=== PATIENT | female | born 1970 | race Caucasian/White ===

== ENCOUNTER 2018-11-13 13:21 | Emergency (ER) | payer SELFPAY ==
[2018-11-13] MEDS ORDERED: TRAMADOL HCL 50 MG TAB ONE (15:44)
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
[2018-11-13] MEDS ORDERED: FENTANYL CITR 100 MCG/2 ML ONE (16:18)
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
[2018-11-13] MEDS ORDERED: KETOROLAC 30 MG/ML INJ ONE (16:55)
== END 2018-11-13 16:56 | disposition home or self-care (01) ==
LOC: ER 13:21
DX: M54.5 Low back pain (principal); V43.52XA Car driver injured in collision with other type car in traffic accident, initial encounter; Z88.5 Allergy status to narcotic agent; E11.9 Type 2 diabetes mellitus without complications
CPT/HCPCS: 72131; 96374; 96375; 99284; J3010

== ENCOUNTER 2020-08-22 15:02 | Emergency (ER) | payer OTHER, SELFPAY ==
--- NOTE | 2020-08-22 16:11 | RAD REPORT ---
EXAM DESCRIPTION: CTAbdomen Pelvis W Contrast - 08/22/2020 4:01 pm CLINICAL HISTORY: Abdominal pain. ABD PAIN COMPARISON: No comparisons TECHNIQUE: Biphasic CT imaging of the abdomen and pelvis was performed with 100 ml non-ionic IV cont rast. All CT scans are performed using dose optimization technique as appropriate and may include automated exposure control or mA/KV adjustment according to patient size. FINDINGS: The lung bases are clear.Postsurgical changes about the stomach. The liver, spleen, pancreas, adrenal glands and kidneys are within normal limits. No bowel obstruction, free air, free fluid or abscess. Moderate fecal retention throughout the colon. The appendix is normal. No evidence of significant lymphadenopathy. No suspicious bony findings. IMPRESSION: No acute intra-abdominal or pelvic finding.
[2020-08-22 16:58] LABS: Absolute Lymphocytes (CBC) 2.8 K/uL (0.7-4.9); Basophils % 1.2 % (0-1.3); Hematocrit 41.2 % (36.0-45.0); Lymphocytes % 40.9 % (15.3-44.8); MPV 8.1 fL (7.6-11.3); RBC Red Blood Cell Count 4.86 M/uL (3.86-4.86)
[2020-08-22 17:16] LABS: ALT/SGPT 12 U/L (12-78); AST/SGOT 12 U/L (15-37); Albumin 3.5 g/dL (3.4-5.0); Alkaline Phosphatase 50 U/L (45-117); BUN Blood Urea Nitrogen 15 mg/dL (7-18); Bicarbonate 29 mmol/L (21-32); Bilirubin Direct < 0.1 mg/dL (0-0.2); Bilirubin Total 0.3 mg/dL (0.2-1.0); Glucose Level 76 mg/dL (74-106); Lipase 174 U/L (73-393); Potassium 3.9 mmol/L (3.5-5.1); Protein, Total 6.9 g/dL (6.4-8.2); Sodium Level 140 mmol/L (136-145)
--- NOTE | 2020-08-22 17:30 | EDPHYS ---
Physician Documentation [facility] Name: Shante Tapia Age: 50 yrs Sex: Female : 1970 Arrival Date: 08/22/2020 Time: 15:05 Bed 18 Private MD: ED Physician Jamin Bhagat HPI: 08/22 16:03 This 50 yrs old Female presents to ER via Ambulatory with complaints of ps1 Abdominal Pain - sent by dr r/o appendicitis. 16:03 patient states that she had 4 days of RLQ abdominal pain. Possible fever. Ongoing for 4 ps1 days. Went to PCP today for scheduled appointment. Sent for ED evaluation to r/o appendicitis. Hx of gastric sleeve and abdominoplasty. No NVD. . 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 - Social history:: Smoking status: Patient reports the use of cigarette tobacco products, smokes one-half pack cigarettes per day. ROS: 16:03 Constitutional: Negative for fever, chills, and weight loss, Eyes: Negative for injury, ps1 pain, redness, and discharge, Cardiovascular: Negative for chest pain, palpitations, and edema, Respiratory: Negative for shortness of breath, cough, wheezing, and pleuritic chest pain, : Negative for injury, bleeding, discharge, and swelling, MS/Extremity: Negative for injury and deformity, Skin: Negative for injury, rash, and discoloration, Neuro: Negative for headache, weakness, numbness, tingling, and seizure. 16:03 Abdomen/GI: Positive for abdominal pain. Exam: 16:03 Constitutional: This is a well developed, well nourished patient who is awake, alert, ps1 and in no acute distress. Head/Face: Normocephalic, atraumatic. Chest/axilla: Normal chest wall appearance and motion. Nontender with no deformity. No lesions are appreciated. Cardiovascular: Regular rate and rhythm. No gallops, murmurs, or rubs. Normal PMI, no JVD. No pulse deficits. Respiratory: Lungs have equal breath sounds bilaterally, clear to auscultation and percussion. No rales, rhonchi or wheezes noted. No increased work of breathing, no retractions or nasal flaring. MS/ Extremity: Pulses equal, no cyanosis. Neurovascular intact. Full, normal range of motion. Neuro: Awake and alert, GCS 15, oriented to person, place, time, and situation. Cranial nerves II-XII grossly intact. Sensory grossly intact. 16:03 Abdomen/GI: Inspection: scar(s), are noted in the umbilical area and suprapubic area. Vital Signs: 15:16 BP 133 / 92; Pulse 77; Resp 18; Temp 98.8(O); Pulse Ox 100% on R/A; Weight 88 kg; em Height 5 ft. 4 in. (162.56 cm); Pain 8/10; 15:50 BP 123 / 75; Pulse 76; Resp 16 S; Pulse Ox 100% on R/A; ca1 16:50 BP 127 / 75; Pulse 72; Resp 16 S; Pulse Ox 100% on R/A; ca1 17:38 BP 121 / 72; Pulse 76; Resp 16 S; Pulse Ox 100% on R/A; ca1 15:16 Body Mass Index 33.30 (88.00 kg, 162.56 cm) em MDM: 15:53 Patient medically screened. ps1 17:27 Differential diagnosis: appendicitis, bowel obstruction, non-specific abd pain, ps1 pancreatitis, Pyelonephritis, urinary tract infection. Data reviewed: vital signs, nurses notes, lab test result(s), radiologic studies, and as a result, I will discharge patient. Counseling: I had a detailed discussion with the patient and/or guardian regarding: the historical points, exam findings, and any diagnostic results supporting the discharge/admit diagnosis, lab results, radiology results, the need for outpatient follow up, to return to the emergency department if symptoms worsen or persist or if there are any questions or concerns that arise at home. 08/22 15:12 Order name: Basic Metabolic Panel ps1 08/22 15:12 Order name: CBC with Diff; Complete Time: 17:02 ps1 08/22 17:26 Interpretation: Within normal limits: WBC 6.9. ps1 08/22 15:12 Order name: Hepatic Function; Complete Time: 17:26 ps1 08/22 17:27 Interpretation: Within normal limits: AST 12; ALT 12; ALK 50; BILIT 0.3. [facility] 08/22 15:12 Order name: Lipase; Complete Time: 17:26 [facility] 08/22 15:12 Order name: CT Abd/Pelvis - IV Contrast Only; Complete Time: 16:14 [facility] 08/22 15:12 Order name: Basic Metabolic Panel; Complete Time: 17:26 [facility] 08/22 15:12 Order name: IV Saline Lock; Complete Time: 16:48 [facility] 08/22 15:12 Order name: Labs collected and sent; Complete Time: 16:48 [facility] 08/22 17:31 Order name: Urine Dipstick-Ancillary (obtain specimen); Complete Time: 17:44 ps1 Administered Medications: No medications were administered Disposition: 08/22/20 17:30 Discharged to Home. Impression: RLQ abdominal pain. - Condition is Stable. - Discharge Instructions: Abdominal Pain, Adult. - Medication Reconciliation Form, Thank You Letter, Antibiotic Education, Prescription Opioid Use form. - Follow up: Emergency Department; When: As needed; Reason: Fever > 102 F, Trouble breathing, Worsening of condition. Follow up: Private Physician; When: As needed; Reason: Further diagnostic work-up. - Problem is new. - Symptoms are unchanged. Signatures: Dispatcher [employer] [facility] Juan Ngo RN RN em Jamin Bhagat MD MD ps1 Micki Bruce RN RN ca1 Corrections: (The following items were deleted from the chart) 15:21 15:19 Allergies: Codeine; em em 17:27 17:27 AST 12; ALT 12; ALK 50; BILIT 0.3. [place] [id number] 17:50 17:30 08/22/2020 17:30 Discharged to Home. Impression: RLQ abdominal pain. Condition is ca1 Stable. Forms are Medication Reconciliation Form, Thank You Letter, Antibiotic Education, Prescription Opioid Use. Follow up: Emergency Department; When: As needed; Reason: Fever > 102 F, Trouble breathing, Worsening of condition. Follow up: Private Physician; When: As needed; Reason: Further diagnostic work-up. Problem is new. Symptoms are unchanged. ps1
--- NOTE | 2020-08-22 17:30 | ER ---
Nurse's Notes [facility] Name: Shante Tapia Age: 50 yrs Sex: Female : 1970 Arrival Date: 08/22/2020 Time: 15:05 Bed 18 Private MD: Diagnosis: RLQ abdominal pain Presentation: 08/22 15:16 Chief complaint: [facility], reports em N/V and LRQ pain, rates pain 8/10, fever comes and goes. Coronavirus screen: Client denies travel out of the [place] in the last 14 days. Ebola Screen: Patient negative for fever greater than or equal to 101.5 degrees Fahrenheit, and additional compatible Ebola Virus Disease symptoms Patient denies exposure to infectious person. Patient denies travel to an Ebola-affected area in the 21 days before illness onset. No symptoms or risks identified at this time. Initial Sepsis Screen: Does the patient meet any 2 criteria? No. Patient's initial sepsis screen is negative. Does the patient have a suspected source of infection? No. Patient's initial sepsis screen is negative. Risk Assessment: Do you want to hurt yourself or someone else? Patient reports no desire to harm self or others. Onset of symptoms was August 18, 2020. 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 - Social history:: Smoking status: Patient reports the use of cigarette tobacco products, smokes one-half pack cigarettes per day. Screenin:50 Abuse screen: Denies threats or abuse. Denies injuries from another. Nutritional ca1 screening: No deficits noted. Tuberculosis screening: No symptoms or risk factors identified. Fall Risk IV access (20 points). Assessment: 15:50 General: Appears in no apparent distress. comfortable, Behavior is calm, cooperative, ca1 appropriate for age. Pain: Complains of pain in suprapubic area and right lower quadrant Pain currently is 7 out of 10 on a pain scale. Pain began 4 days Is intermittent. Neuro: Level of Consciousness is awake, alert, obeys commands, Oriented to person, place, time, situation. Cardiovascular: Heart tones S1 S2 present Capillary refill < 3 seconds Patient's skin is warm and dry. Respiratory: Airway is patent Respiratory effort is even, unlabored, Respiratory pattern is regular, symmetrical, Breath sounds are clear bilaterally. GI: Abdomen is round non-distended, Bowel sounds present X 4 quads. Abd is soft X 4 quads Abdomen is tender to palpation in suprapubic area and right lower quadrant. : No signs and/or symptoms were reported regarding the genitourinary system. EENT: No signs and/or symptoms were reported regarding the EENT system. Derm: Skin is intact, is healthy with good turgor, Skin is pink, warm \T\ dry. Musculoskeletal: Circulation, motion, and sensation intact. Capillary refill < 3 seconds. 16:50 Reassessment: Patient appears in no apparent distress at this time. Patient and/or ca1 family updated on plan of care and expected duration. Pain level reassessed. Patient is alert, oriented x 3, equal unlabored respirations, skin warm/dry/pink. 17:38 Reassessment: Patient appears in no apparent distress at this time. Patient is alert, ca1 oriented x 3, equal unlabored respirations, skin warm/dry/pink. Vital Signs: 15:16 BP 133 / 92; Pulse 77; Resp 18; Temp 98.8(O); Pulse Ox 100% on R/A; Weight 88 kg; em Height 5 ft. 4 in. (162.56 cm); Pain 8/10; 15:50 BP 123 / 75; Pulse 76; Resp 16 S; Pulse Ox 100% on R/A; ca1 16:50 BP 127 / 75; Pulse 72; Resp 16 S; Pulse Ox 100% on R/A; ca1 17:38 BP 121 / 72; Pulse 76; Resp 16 S; Pulse Ox 100% on R/A; ca1 15:16 Body Mass Index 33.30 (88.00 kg, 162.56 cm) em ED Course: 15:05 Patient arrived in ED. as 15:08 Jamin Bhagat MD is Attending Physician. ps1 15:18 Triage completed. em 15:21 Arm band placed on. em 15:48 Micki Bruce, RN is Primary Nurse. ca1 15:50 Patient has correct armband on for positive identification. Placed in gown. Bed in low ca1 position. Call light in reach. Side rails up X2. Pulse ox on. NIBP on. Warm blanket given. 16:02 CT Abd/Pelvis - IV Contrast Only In Process Unspecified. EDMS 16:42 Initial lab(s) drawn, by me, sent to lab. Inserted saline lock: 22 gauge in left ca1 antecubital area, using aseptic technique. ,using aseptic technique. by technical information specialist. 16:42 No provider procedures requiring assistance completed. ca1 17:49 IV discontinued, intact, bleeding controlled, No redness/swelling at site. Pressure ca1 dressing applied. Administered Medications: No medications were administered Outcome: 17:30 Discharge ordered by . ps1 17:49 Discharged to home ambulatory. ca1 17:49 Condition: stable 17:49 Discharge instructions given to patient, Instructed on discharge instructions, follow up and referral plans. Demonstrated understanding of instructions, follow-up care. 17:50 Patient left the ED. ca1 Signatures: Dispatcher [employer] [facility] Juan Ngo, RN RN Irena Arnold Phillip, MD MD ps1 Micki Bruce RN RN ca1 Corrections: (The following items were deleted from the chart) 15:21 15:19 Allergies: Codeine; em em
[2020-08-25 10:51] VITALS: TEMP 98.8; O2SAT 100
[2020-08-25 10:56] VITALS: BP 121/72
== END 2020-08-22 17:50 | disposition home or self-care (01) ==
LOC: ER 15:02
DX: R10.31 Right lower quadrant pain (principal); F17.210 Nicotine dependence, cigarettes, uncomplicated
CPT/HCPCS: 85025; 80048; 36415; 80076; 83690; 74177; 99284; Q9967

== ENCOUNTER 2023-12-25 08:16 | Emergency (ER) | payer OTHER ==
--- OUTSIDE RECORDS SUMMARY | 2023-12-25 08:18 | XMS REPORT | Continuity of Care Document ---
Author Name Unknown Address [address] [facility] [address] [place] [address] [facility] thconnect Address [address] 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 Phone CTR, [facility] Primary Care Physician Sarah Cruz Attending Clinician Mohit Soriano Attending Clinician [phone] MOHIT LEE Attending Clinician Unavailable Doctor Unassigned, [place] Attending Clinician U neena Garsia RN, Zenia Rodriguez Attending Clinician Unavailmiguel e Only, Jovan Db Test Attending Clinician UnavailSARAH Solares Attending Clinician ANDREZ Hammer Attending Clinician Unavailable Therapy, [facility] Attending Clinician Floridalma Vazquez MD, Andrez Rowe Attending Clinician [phone] Tomas HARRINGTON, Nikki Hernandez Attending Clinician Unavailab le Payers Payer Name Policy Type Policy Number Effective Date Expirati on Date Source [employer] GENER[employer] [id number] 2020 00:00:00 2021-09 00:00:00 Problems Condition Name Condition Details Condition Category Status Onset Date Resolution Date Last Treatment Date Treating Clinician Comments Source No known active problems No known active problems Disease [facility] Allergies, Adverse Reactions, Alerts Allergy Name Allergy Type Status Severity Reaction(s) Onset Date Inactive Date Treating Clinician Comments Source Codecharan Propesthela ty to adverse reaction s Active Swelling 06-01 00:00: 00 [facility] CODEINE DRUG INGREDI Active Swelling 06-01 00:00: 00 [facility] Ibuprofe n Propensi ty to adverse reaction s Active Nausea and/or Vomiting 12-31 00:00: 00 [facility] IBUPROFE N DRUG INGREDI Active N/V 12-31 00:00: 00 [facility] Hydrocod one-Acet aminophe n Propensi ty to adverse reaction s Active Swelling 12-05 00:00: 00 [facility] HYDROCOD ONE-ACET AMINOPHE N DRUG Active Swelling 12-05 00:00: 00 [facility] NO KNOWN ALLERGIE S Drug Class Active [facility] Social History Social Habit Start Date Stop Date Quantity Comments Source History of tobacco use Cigarette Smoker [facility] Exposure to SARS-CoV-2 (event) 2022-04-25 00:00:00 2022-05-05 10:58:00 Yes [facility] Cigarettes smoked current (pack per day) - Reported 2022-05-05 00:00:00 2022-05-05 00:00:00 [facility] Alcohol intake 2022-05-05 00:00:00 2022-05-05 00:00:00 Current drinker of alcohol (finding) [facility] Tobacco use and exposure 2022-05-05 00:00:00 2022-05-05 00:00:00 Smokeless tobacco non-user [facility] Sex Assigned At 1970 00:00:00 1970 00:00:00 [facility] Smoking Status Start Date Stop Date Source Unknown if ever smoked [facility] Smokes tobacco daily 2022-05-05 00:00:00 [facility] Medications Ordered Medication Name Filled Medication Name Start Date Stop Date Current Medication? Ordering Clinician Indication Dosage Frequency Signature (SIG) Comments Components Source molnupiravi r 200 mg capsule 05-05 00:00: 00 Yes [id number] 800mg Take 4 capsules by mouth every 12 (twelve) hours. [facility] aspirin 81 mg chewable tablet 05-03 20:47: 00 Yes 81mg Take 81 mg by mouth daily. [facility] aspirin 81 mg chewable tablet 05-03 15:47: 00 Yes 81mg Take 81 mg by mouth daily. [facility] omeprazole 20 mg capsule 04-24 00:00: 00 Yes TAKE ONE CAPSULE BY MOUTH DAILY FOR STOMACH. *DO NOT CRUSH* [facility] atorvastati n 80 mg tablet 04-24 00:00: 00 Yes TAKE ONE-HALF TABLET BY MOUTH DAILY FOR CHOLESTERO L [facility] omega 3-dha-epa-f bossman oil (FISH OIL) 100-160-1,0 00 mg Cap 04-24 00:00: 00 Yes TAKE ONE CAPSULE BY MOUTH DAILY [facility] buPROPion XL 150 mg 24 hr tablet 02-09 00:00: 00 Yes TAKE THREE TABLETS BY MOUTH MORNING [facility] traZODone 100 mg tablet 02-09 00:00: 00 Yes TAKE ONE TABLET BY MOUTH BEDTIME NEEDED FOR SLEEP CAN TAKE 2 TABLETS(10 0 MG) IF NEEDED. [facility] Vital Signs Vital Name Observation Time Observation Value Comments S ource Heart rate 2022-05-05 16:00:00 86 /min [facility] Body temperature 2022-05-05 16:00:00 37.67 Yoly [facility] Respiratory rate 2022-05-05 16:00:00 20 /min [facility] Body height 2022-05-05 16:00:[address] [facility] Body weight 2022-05-05 16:00:[address] [facility] BMI 2022-05-05 16:00:00 37.45 kg/m2 [facility] Oxygen saturation in Arterial blood by Pulse oximetry 2022-05-05 16:00:00 98 /min [facility] Systolic blood pressure 2022-05-05 16:00:00 120 mm[Hg] [facility] Diastolic blood pressure 2022-05-05 16:00:00 78 mm[Hg] [facility] Systolic blood pressure 2021-05-03 21:58:00 110 mm[Hg] [facility] Diastolic blood pressure 2021-05-03 21:58:00 72 mm[Hg] [facility] Heart rate 2021-05-03 21:58:00 68 /min [facility] Body temperature 2021-05-03 21:58:00 36.78 Yoly [facility] Respiratory rate 2021-05-03 21:58:00 16 /min [facility] Oxygen saturation in Arterial blood by Pulse oximetry 2021-05-03 21:58:00 98 /min [facility] Body height 2021-05-03 20:44:[address] [facility] Body weight 2021-05-03 20:44:[address] [facility] BMI 2021-05-03 20:44:00 30.19 kg/m2 [facility] Procedures Procedure Date / Time Performed Performing Clinicia n Source POCT SARS-COV-2 ANTIGEN (BINAX NOW) 2022-05-05 16:05:00 Mohit Lee [facility] ASSIGNMENT OF BENEFITS 2022-05-05 15:55:18 Docto r Unassigned, [place] [facility] ASSIGNMENT OF BENEFITS 2021-04-26 17:11:53 Docto r Unassigned, [place] [facility] Encounters Start Date/Time End Date/Time Encounter Type Admission Type Attending Clinicians Care Facility Care Department Encounter ID Source 2022-05-05 11:00:00 2022-05-05 11:28:13 Urgent Care Sarah Harris Rania [facility] [id number] [facility] 2022-05-05 11:00:00 2022-05-05 11:28:13 Outpatient R MOHIT LEE [facility] [id number] [facility] 2022-05-05 00:00:00 2022-05-05 00:00:00 Orders Only Doctor Unassigned, [place] [facility] [id number] [id number] [id number] [facility] 2021-05-06 00:00:00 2021-05-06 00:00:00 Telephone Zenia Garsia [facility] 1.2.114 [id number] [id number] [facility] 2021-05-05 18:49:37 2021-05-05 19:04:37 Laboratory Only Only, Sarah Cid [facility] [id number] [facility] 2021-05-05 19:00:00 2021-05-05 19:00:00 Outpatient SARAH RYAN [facility] [id number] [facility] 2021-05-03 15:30:00 2021-05-03 18:44:09 Outpatient ANDREZ [place] [facility] [id number] [facility] 2021-05-03 15:34:26 2021-05-03 16:34:26 Nurse Visit Therapy, Andrez Jean [facility] 1..114 [id number] [id number] [facility] 2021-04-27 00:00:00 2021-04-27 00:00:00 Letter (Out) Nikki Marin [facility] [id number] [id number] [facility] 2021-04-27 00:00:00 2021-04-27 00:00:00 Patient Secure Msg Doctor Unassigned, [place] [facility] [id number] [facility] 2021-04-26 12:25:00 2021-04-26 13:24:29 Outpatient SARAH RYAN [facility] [id number] [facility] 2021-04-26 00:00:00 2021-04-26 00:00:00 Orders Only Doctor Unassigned, [place] [facility] [id number] [id number] [facility] Results Test Description Test Time Test Comments Results Result Co mments Source [facility]
[2023-12-25] MEDS ORDERED: CODEINE 30MG/APAP 300MG TAB ONE (08:35)
[2023-12-25] MEDS ORDERED: TDAP (DIPHTH,PERTUSS(ACELL),TET VAC) 0.5 ML VIAL IMVAC ONE (08:35)
--- NOTE | 2023-12-25 09:11 | EDPHYS ---
Physician Documentation [facility] Name: Shante Tapia Age: 53 yrs Sex: Female : 1970 Arrival Date: 12/25/2023 Time: 08:16 Bed 20 Private MD: ED Physician Patrick Rojo HPI: 12/24 08:33 This 53 yrs old Female presents to ER via Ambulatory with complaints of ec2 Laceration To Hand - FINGER. 08:33 Patient arrives today for evaluation of injury to the right thumb. Patient states that ec2 she was slicing meat and subsequently injured her right thumb. States that she is sliced off a portion of her nail as well as soft tissue. Unsure of last tetanus shot, no other injuries. On Eliquis.. Historical: - Allergies: 08:32 No Known Allergies; ap3 - Home Meds: 08:32 Eliquis oral [Active]; ap3 - PMHx: 08:32 Diabetes - NIDDM; ap3 - Immunization history:: Client reports receiving the 2nd dose of the Covid vaccine, Last tetanus immunization: unknown. - Social history:: Smoking status: Patient reports the use of cigarette tobacco products, smokes one-half pack cigarettes per day. ROS: 08:33 Constitutional: as per hpi ec2 Exam: 08:33 Constitutional: GEN: NAD Head: atraumatic Eyes: EOMI Ears: External ears are ec2 normal. CV: regular rate LUNGS: no respiratory distress ABD: non-distended SKIN: Right thumb with notable soft tissue chunk missing, nail involvement, no nailbed involvement. No pulsatile bleeding. MSK: no evidence of trauma NEURO: moves all extremities equally Vital Signs: 08:28 Pulse 110; Resp 18; Temp 99.2; Pulse Ox 99% on R/A; Weight 111.13 kg; Pain 9/10; ap3 08:42 BP 131 / 66; Pulse 98; kc6 09:57 BP 118 / 62; Pulse 79; Resp 16 S; Pulse Ox 95% on R/A; kc6 08:28 Pain Scale: Adult ap3 MDM: 08:25 Patient medically screened. ec2 08:33 Data reviewed: vital signs. ED course: Patient arrives today for evaluation of a right ec2 thumb injury. Examination remarkable for well-appearing nontoxic dividual is otherwise in no acute distress with hand findings as above. Obtain hand x-ray update tetanus status.. 09:08 ED course: Hand XR independentlyl reviewed and interpreted by me, shows no bony fx, ec2 soft tissue defect noted. Will place in bulky dressing, cover w/ empiric abx coverage. return precautions given. . 12/24 08:33 Order name: Hand Right 3 View XRAY; Complete Time: 09:16 ec2 12/24 09:10 Order name: Wound Care: bulky dressing w/ non-adherent, gauze and kerlix; Complete ec2 Time: 09:57 Administered Medications: 08:39 Drug: Boostrix Tdap IM 0.5 ml IM once; as a single dose Route: IM; Site: right deltoid; [facility] 09:57 Follow up: Response: No adverse reaction [facility] 08:39 Drug: Acetaminophen-Codeine PO (300 mg-30 mg) 1 tablet PO once; RASS on ADMIN: Combtv4, kc6 Very Agttd3, Agttd2, Rstlss1, AlertClm0, Drwsy-1, Lt Sdtn-2, Mod Sdtn-3, Dp Sdtn-4, UnArsble-5 Route: PO; 09:57 Follow up: Response: No adverse reaction; Pain is decreased; RASS: Alert and Calm (0) kc6 Disposition Summary: 12/25/23 09:10 Discharge Ordered Notes: Location: Home ec2 Condition: Stable ec2 Diagnosis - Soft Tissue Injury ec2 Followup: ec2 - With: Private Physician - When: - Reason: Re-evaluation by your physician Discharge Instructions: - Discharge Summary Sheet ec2 Forms: - Medication Reconciliation Form ec2 - Thank You Letter ec2 - Antibiotic Education ec2 - Prescription Opioid Use ec2 - Patient Portal Instructions ec2 - Leadership Thank You Letter ec2 Prescriptions: - acetaminophen-codeine 300-15 mg Oral tablet - take 1 tablet ORAL route every 8 hours; 5 tablet; Refills: 0, Product Selection ec2 Permitted - Cephalexin 500 mg Oral capsule - take 1 capsule ORAL route every 8 hours for 5 days; 15 capsule; Refills: 0, ec2 Product Selection Permitted Signatures: Dispatcher [employer] [place] Mejia RN RN ap3 Maite Xiao RN RN kc6 Patrick Rojo MD MD ec2 Corrections: (The following items were deleted from the chart) 08:33 08:33 Hand Right 3 View+RAD.RAD.BRZ ordered. EDMS EDMS
--- NOTE | 2023-12-25 09:11 | ER ---
Nurse's Notes [facility] Name: Shante Tapia Age: 53 yrs Sex: Female : 1970 Arrival Date: 12/25/2023 Time: 08:16 Bed 20 Private MD: Diagnosis: Soft Tissue Injury Presentation: 12/24 08:28 Chief complaint: Patient states: she was slicing summer sausage when she sliced the tip ap3 of her right thumb. patient reports she is on Eliquis. patient states her pain is currently a 9/10 on the pain scale at this time. Coronavirus screen: At this time, the client does not indicate any symptoms associated with coronavirus-19. Ebola Screen: No symptoms or risks identified at this time. 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 Initial Sepsis Screen: Does the patient meet any 2 criteria? No. Patient's initial sepsis screen is negative. Does the patient have a suspected source of infection? No. Patient's initial sepsis screen is negative. Risk Assessment: Do you want to hurt yourself or someone else? Patient reports no desire to harm self or others. Onset of symptoms was December 25, 2023. 08:28 Method Of Arrival: Ambulatory ap3 08:28 Acuity: ELENA 4 ap3 Triage Assessment: 08:32 General: Appears in no apparent distress. Behavior is calm, cooperative, appropriate ap3 for age. Pain: Complains of pain in palmar aspect of distal phalanx of right thumb Pain currently is 9 out of 10 on a pain scale. Neuro: Level of Consciousness is awake, alert, obeys commands, Oriented to person, place, time, situation. Cardiovascular: Patient's skin is warm and dry. Respiratory: Airway is patent Respiratory effort is even, unlabored, Respiratory pattern is regular, symmetrical. Injury Description: Laceration sustained to palmar aspect of distal phalanx of right thumb. Historical: - Allergies: 08:32 No Known Allergies; ap3 - Home Meds: 08:32 Eliquis oral [Active]; ap3 - PMHx: 08:32 Diabetes - NIDDM; ap3 - Immunization history:: Client reports receiving the 2nd dose of the Covid vaccine, Last tetanus immunization: unknown. - Social history:: Smoking status: Patient reports the use of cigarette tobacco products, smokes one-half pack cigarettes per day. Screenin:25 [facility] ED Fall Risk Assessment (Adult) History of falling in the last 3 months, kc6 including since admission No falls in past 3 months (0 pts) Confusion or Disorientation No (0 pts) Intoxicated or Sedated No (0 pts) Impaired Gait No (0 pts) Mobility Assist Device Used No (0 pt) Altered Elimination No (0 pt) Score/Fall Risk Level 0 - 2 = Low Risk. Abuse screen: Denies threats or abuse. Denies injuries from another. Nutritional screening: No deficits noted. Tuberculosis screening: No symptoms or risk factors identified. Assessment: 08:41 General: Appears in no apparent distress. comfortable, well groomed, well developed, kc6 Behavior is calm, cooperative, appropriate for age. Pain: Complains of pain in right hand and palmar aspect of distal phalanx of right thumb. Neuro: Level of Consciousness is awake, alert, obeys commands, Oriented to person, place, time, situation, Appropriate for age. Cardiovascular: Capillary refill < 3 seconds. Respiratory: Airway is patent Trachea midline Respiratory effort is even, unlabored, Respiratory pattern is regular, symmetrical. GI: No signs and/or symptoms were reported involving the gastrointestinal system. : No signs and/or symptoms were reported regarding the genitourinary system. EENT: No signs and/or symptoms were reported regarding the EENT system. Derm: No signs and/or symptoms reported regarding the dermatologic system. Skin is healthy with good turgor, Skin is pink, warm \T\ dry. Musculoskeletal: No signs and/or symptoms reported regarding the musculoskeletal system. Circulation, motion, and sensation intact. Capillary refill < 3 seconds, Range of motion: intact in all extremities. Injury Description: Avulsion sustained to palmar aspect of distal phalanx of right thumb is partial was sustained 30-60 minutes ago. 09:41 Reassessment: Patient appears in no apparent distress at this time. No changes from kc6 previously documented assessment. Patient and/or family updated on plan of care and expected duration. Pain level reassessed. Patient is alert, oriented x 3, equal unlabored respirations, skin warm/dry/pink. Vital Signs: 08:28 Pulse 110; Resp 18; Temp 99.2; Pulse Ox 99% on R/A; Weight 111.13 kg; Pain 9/10; ap3 08:42 BP 131 / 66; Pulse 98; kc6 09:57 BP 118 / 62; Pulse 79; Resp 16 S; Pulse Ox 95% on R/A; kc6 08:28 Pain Scale: Adult ap3 ED Course: 08:17 Patient arrived in ED. mg5 08:21 Patrick Rojo MD is Attending Physician. ec2 08:22 Maite Xiao, LEN is Primary Nurse. kc6 08:25 Patient has correct armband on for positive identification. Bed in low position. Call kc6 light in reach. Side rails up X 1. Client placed on continuous cardiac and pulse oximetry monitoring. NIBP monitoring applied. Warm blanket given. 08:32 Triage completed. ap3 08:50 Hand Right 3 View XRAY In Process Unspecified. EDMS 09:58 No provider procedures requiring assistance completed. Patient did not have IV access kc6 during this emergency room visit. Administered Medications: 08:39 Drug: Boostrix Tdap IM 0.5 ml IM once; as a single dose Route: IM; Site: right deltoid; kc6 09:57 Follow up: Response: No adverse reaction kc6 08:39 Drug: Acetaminophen-Codeine PO (300 mg-30 mg) 1 tablet PO once; RASS on ADMIN: Combtv4, kc6 Very Agttd3, Agttd2, Rstlss1, AlertClm0, Drwsy-1, Lt Sdtn-2, Mod Sdtn-3, Dp Sdtn-4, UnArsble-5 Route: PO; 09:57 Follow up: Response: No adverse reaction; Pain is decreased; RASS: Alert and Calm (0) kc6 Medication: 09:58 VIS not applicable for this client. kc6 Outcome: 09:10 Discharge ordered by . ec2 09:58 Discharged to home ambulatory, kc6 09:58 Condition: good 09:58 Discharge instructions given to patient, Instructed on discharge instructions, follow up and referral plans. medication usage, wound care, Demonstrated understanding of instructions, follow-up care, medications, wound care, Prescriptions given X 2, 09:58 Patient left the ED. kc6 Signatures: Dispatcher [employer] [place] Pereyra RN RN ap3 Maite Xiao RN RN kc6 Magaly Raphael mg5 Rojo, Patrick, MD MD ec2
--- NOTE | 2023-12-25 09:15 | RAD REPORT ---
EXAM DESCRIPTION: RAD - Hand Right 3 View - 12/25/2023 8:48 am CLINICAL HISTORY: PAIN COMPARISON: No comparisons TECHNIQUE: Right hand, 3 views. FINDINGS: No fracture is identified. There is no dislocation or periosteal reaction noted. Soft tissue irregularity and swelling along the tip of the first digit distal phalanx. No foreign body or other soft tissue abnormality. IMPRESSION: First digit distal phalanx soft tissue swelling and irregularity. No acute osseus abnorm ality.
[2023-12-25 18:00] VITALS: BP 118/62; TEMP 99.2; O2SAT 95
== END 2023-12-25 09:58 | disposition home or self-care (01) ==
LOC: ER 08:16
DX: S60.931A Unspecified superficial injury of right thumb, initial encounter (principal); E11.9 Type 2 diabetes mellitus without complications; F17.210 Nicotine dependence, cigarettes, uncomplicated; Z79.01 Long term (current) use of anticoagulants